=== PATIENT | female | born 2000 | race Two or more races ===

== ENCOUNTER 2025-09-26 20:30 | Emergency (ER) | payer MEDICAID, SELFPAY ==
[2025-09-26 21:38] VITALS: BP 111/75; PULSE 107; RESP 20; TEMP 37.1; O2SAT 99
--- NOTE | 2025-09-26 21:48 | XR_ITS ---
EXAMINATION: PA lateral chest 2 views TECHNIQUE: Upright PA lateral chest 2 views Date and time: September 26, 2025, 10 0 7:00 p.m. INDICATIONS: Body aches headaches 3 days ago. FINDINGS: Normal heart size. Lungs are clear. Osseous structures are intact IMPRESSION: No active disease
--- NOTE | 2025-09-26 21:48 | PD.EDRME ---
Rapid Medical Screening Exam RME Arrival date/time: 09/26/25 20:30 This is a case of 24-year-old female with no medical history had vaginal delivery 3 days ago now with cough nasal congestion sore throat and fever with some shortness of breath today Chief Complaint: Fever Time Seen by Provider: 09/26/25 20:42 Vital signs: Vital Signs Temperature 98.8 F 09/26/25 21:38 Pulse Rate 107 H 09/26/25 21:38 Respiratory Rate 20 09/26/25 21:38 Blood Pressure 111/75 09/26/25 21:38 Pulse Oximetry (%) 99 09/26/25 21:38 Oxygen Delivery Method Room Air 09/26/25 21:38 Exam: Patient is awake alert oriented not in distress nontoxic looking clear breath Clinical Impression: Fever
--- NOTE | 2025-09-26 22:57 | EDNOTE_ITS ---
ED Fever RME/HPI General Chief Complaint: Fever Stated Complaint: BODYACHES AND SORE THROAT Time Seen by Provider: 09/26/25 20:42 Arrival date/time: 09/26/25 20:30 RME / HPI RME / HPI Narrative: Dr. Goetz?s Main ED Evaluation: 24yo female with no significant past medical history presents to the ED for complaints of generalized body aches, headache, and a sore throat for the last couple days. No fever, chills, N/V/D, cough, shortness of breath, or any other associated symptoms. NKA. Related Data Previous Rx's ?Medication ?Instructions ?Recorded diphenhydramine HCl 25 mg tablet 25 mg PO TID PRN greer rgic reaction 07/14/23 (Allergy) #30 tabs Allergies Allergy/AdvReac Type Severity Reaction Status Date / Time No Known Allergies Allergy Verified 08/09/23 11:42 Review of Systems Review of Systems Systems Reviewed: All systems reviewed, normal except as documented Physical Exam Narrative Physical exam: Generally patient is in no obvious distress, oropharynx is moist and clear, lungs clear to auscultation equal bilaterally, heart regular rate and rhythm, abdomen soft nondistended nontender Course Quality Measures none Orders Category Date Time Status Bedside COVID-19 Antigen Test NOW Care 09/26/25 21:48 Active Bedside Influenza A&B Antigen Test NOW Care 09/26/25 21:48 Completed Bedside STREP Test NOW Care 09/26/25 21:48 Completed XR chest 2V Stat Exams 09/26/25 21:48 Completed CBC Stat Lab 09/26/25 22:41 Completed CMP [Comprehensive Metabolic Panel] Stat Lab 09/26/25 22:41 Received HCG Qualitative,Urine Stat Lab 09/26/25 22:22 Completed Urinalysis Stat Lab 09/26/25 22:22 Completed Vital Signs Vital signs: Vital Signs Temperature 98.8 F 09/26/25 21:38 Pulse Rate 107 H 09/26/25 21:38 Respiratory Rate 20 09/26/25 21:38 Blood Pressure 111/75 09/26/25 21:38 Pulse Oximetry (%) 99 09/26/25 21:38 Oxygen Delivery Method Room Air 09/26/25 21:38 Fever MDM Narrative MDM Narrative:: Scribe Attestation: 09/26/25 Agatha Mccartney am scribing for and in the presence of Dr. Goetz. Chest x-ray is normal. COVID and flu are negative. Patient be discharged in stable condition. Patient data External records reviewed:: [facility] previous records (Per chart review, patient has no relevant previous ED visits.) Clinical information provided by:: patient Social determinants that could affect healthcare access:: none Patient has the following chronic illnesses:: none How is presenting disease/condition affected by chronic disease/condition?: no chronic disease Evaluation data The following diagnostics were reviewed and interpreted by me:: lab results and radiology exam(s) Lab and/or radiology exams considered but not ordered:: none Interpretation Summary: Home Imaging Report Signed Patient: MARIFER MORFIN Record#: [id number] Birthdate: 2000 Age/Sex: 24 / F Location: [facility] Attending Dr: Ordering Physician: Kassi Draper Date of Service: 09/26/25 Procedure(s): XR chest 2V Accession Number(s): [id number] cc: Franck Mendez MD; Vicki Gaytan MD; Kassi Draper~ EXAMINATION: PA lateral chest 2 views TECHNIQUE: Upright PA lateral chest 2 views Date and time: September 26, 2025, 10 0 7:00 p.m. INDICATIONS: Body aches headaches 3 days ago. FINDINGS: Normal heart size. Lungs are clear. Osseous structures are intact IMPRESSION: No active disease Dictated By: Franck Mendez MD Signed By: <Electronically signed by Franck Mendez MD in > 09/26/25 3016 Medications / Prescriptions Medications or Prescriptions considered but not ordered:: none Medication administrations:: see above, if any Consultations Consultation(s) initiated? (list below): No Diagnosis Fever Differential Diagnosis: other (See MDM) Most likely diagnosis given after review of the tests above:: see clinical impression below Admission Indicated Admission indicated?: not indicated Admission Request Was there a request for admission?: No Disposition Plan Disposition Plan: Discharge Discharge Attestation Discharge Attestation: The patient and all family members were given an opportunity to ask questions and understood the discharge instructions. Discharge instructions specifically effects, indications for sooner follow up or return to the emergency department, and the expected course of current diagnosis. Patient condition: Stable Discharge Plan Plan Patient Disposition: HOME (Self Care) Prescriptions/Referrals Prescriptions/Med Rec: No Action diphenhydramine HCl [Allergy] 25 mg tablet 25 mg PO TID PRN (Reason: allergic reaction) Qty: 30 0RF Referrals: Vicki Gaytan MD [Primary Care Provider] - In 1 week Problem List Clinical Impression: Acute viral syndrome Patient/Caregiver Discharge Instructions Education Materials: ED Viral Syndrome (Adult) Additional Instructions: No need for antibiotics. You may use Tylenol for any fever or bodyaches. Follow-up with your doctor as needed. Print Language: [place] Stand Alone Forms: Malena Award Info., Patient Portal Info Letter
[2025-09-26 23:02] LABS: Collection Type, Urine Voided
[2025-09-26 23:06] LABS: Basophils # (Auto) 0.0 Thou/mm3 (0.0-0.2); Basophils % (Auto) 0 % (0-2.5); Eosinophils # (Auto) 0.3 Thou/mm3 (0.0-0.5); Eosinophils % (Auto) 2 % (0-10); Hematocrit 34.2 % (36.0-46.0); Hemoglobin 11.9 g/dL (12.0-16.0); Immature Granulocytes Auto 0.06 Thou/mm3 (0.00-0.00); Lymphocytes # (Auto) 2.6 Thou/mm3 (1.0-4.8); Lymphocytes % (Auto) 25 % (10-50); Mean Corpuscular HGB Conc 34.8 g/dl (31.0-37.0); Mean Corpuscular Hemoglobin 33.4 pg (25.0-35.0); Mean Corpuscular Volume 96 fL (80-100); Monocytes # (Auto) 0.6 Thou/mm3 (0.0-0.8); Monocytes % (Auto) 6 % (0-12); Neutrophils # (Auto) 6.7 Thou/mm3 (1.8-7.7); Neutrophils % (Auto) 66 % (37-80); Nucleated Red Blood Cell # 0.00 Thou/mm3 (0.00-0.00); Nucleated Red Blood Cell % 0 /100 WBC (0); Platelet Count 199 Thou/mm3 (140-440); RDW Standard Deviation 46.5 fL (36.4-46.3); Red Blood Count 3.56 Miln/mm3 (4.00-5.20); White Blood Count 10.3 Thou/mm3 (3.6-11.0)
[2025-09-26 23:11] LABS: Bilirubin,Urine Negative (Negative); Blood,Urine 3+ (Negative); Clarity,Urine Turbid (Clear/Hazy); Color,Urine Lt-Yellow (Lt Yel-Yel); Glucose, Urine Negative (Negative); Ketones,Urine Negative (Negative); Leukocyte Esterase,Urine Positive (Negative); Nitrite,Urine Negative (Negative); PH,Urine 6.5 (5.0-7.0); Protein,Urine Trace (Neg - Trace); RBC,Urine 93 /hpf (0-3); Specific Gravity,Urine 1.016 (1.001-1.035); Squamous Epithelial Cell,Urine 3 /hpf (0-5); Urobilinogen,Urine Negative mg/dL (0.0-1.0); WBC,Urine 28 /hpf (0-5)
[2025-09-26 23:12] LABS: HCG Qualitative,Urine Positive
[2025-09-26 23:31] LABS: Alanine Aminotransferase 27 U/L (10-49); Albumin, Serum 3.8 gm/dL (3.5-5.0); Albumin/Globulin Ratio 1.3 (1.2-2.2); Alkaline Phosphatase 145 U/L (46-116); Anion Gap 10 (7-16); Aspartate Amino Transferase 40 U/L (0-34); BUN/Creatinine Ratio 16 Ratio (12-20); Bilirubin,Total 0.3 mg/dL (0.3-1.2); Blood Urea Nitrogen 8 mg/dL (9-23); Calcium 9.4 mg/dL (8.3-10.6); Calcium (Corrected) 9.6 mg/dL (8.5-10.1); Carbon Dioxide 30.3 mMol/L (20.0-31.0); Chloride 104 mMol/L (98-107); Creatinine (Component) 0.5 mg/dL (0.6-1.3); Globulin 3.0 gm/dL (2.3-3.5); Glucose 101 mg/dL (74-106); Osmolality,Calculated 285 (275-295); Potassium 3.9 mMol/L (3.4-5.1); Sodium 144 mMol/L (136-145); Total Protein 6.8 gm/dL (5.7-8.2); eGFR > 60 See Note
== END 2025-09-27 | disposition home or self-care (01) ==
PROVIDERS: Nurse Practitioner Family; Emergency Provider Emergency Medicine; PCP Obstetrics & Gynecology
DX: B34.9 Viral infection, unspecified (principal)
CPT/HCPCS: 36415; 71046; 80053; 81001; 81025; 85025; 87502; 87635; 87651; 99283